=== PATIENT | female | born 1995 | race Caucasian/White ===

== ENCOUNTER 2017-09-30 17:25 | Emergency (ER) | payer BC ==
[~2017-09-30] VITALS: Ht 175.3 cm; Wt 60.5 kg
[2017-09-30 17:39] VITALS: Ht 175.3 cm; Wt 60.5 kg
[2017-09-30 18:14] LABS: BASO % 0.3 %; BASO ABS # 0.03 K/uL (0-0.2); EOS ABS # 0.11 K/uL (0-0.5); HEMATOCRIT 39.9 % (37-47); HEMOGLOBIN 13.6 g/dL (12.0-16.0); IG# 0.02 K/uL (0.00-0.02); LYMPH % 14.3 %; LYMPH ABS # 1.58 K/uL (1.2-3.4); MEAN CELL VOLUME 90.3 fL (80-100); MEAN CORPUSCULAR HEMOGLOBIN 30.8 pg (25-34); MEAN CORPUSCULAR HGB CONC 34.1 g/dl (32-36); MEAN PLATELET VOLUME 9.4 fL (7.4-10.4); MONO % 8.7 %; MONO ABS # 0.96 K/uL (0.11-0.59); NEUT % 75.5 %; NEUT ABS # 8.36 K/uL (1.4-6.5); PLATELET COUNT 215 K/uL (130-400); RED CELL DISTRIBUTION WIDTH CV 12.9 % (11.5-14.5); RED CELL DISTRIBUTION WIDTH SD 42.4 fL (36.4-46.3); WHITE BLOOD COUNT 11.06 K/uL (4.8-10.8)
[2017-09-30 18:22] LABS: ALBUMIN 4.1 gm/dl (3.4-5.0); ALT/SGPT 15 U/L (12-78); AST/SGOT 17 U/L (15-37); BLOOD UREA NITROGEN 15 mg/dl (7-18); CALCIUM 8.9 mg/dl (8.5-10.1); CARBON DIOXIDE 30 mmol/L (21-32); CREATININE 0.93 mg/dl (0.60-1.20); GLUCOSE 74 mg/dl (70-99); LIPASE 111 U/L (73-393); POTASSIUM 3.9 mmol/L (3.5-5.1); SODIUM 139 mmol/L (136-145)
[2017-09-30 18:25] LABS: ALKALINE PHOSPHATASE 75 U/L (45-117); TOTAL PROTEIN 7.5 gm/dl (6.4-8.2)
[2017-09-30] MEDS ORDERED: DOXY75CA4 PO (18:57)
--- NOTE | 2017-09-30 20:12 | DIAGNOSTIC IMAGING REPORT ---
PELVIC COMPLETE NON OB CLINICAL HISTORY: 22 years-old Female presenting with eval for cyst/torsion, , last menstrual period 09/05/2017, no abnormal bleeding or history of surgery, on contraceptive, negative test, pelvic pain. TECHNIQUE: Real-time grayscale and color and spectral Doppler ultrasound imaging of the pelvis was performed using a transabdominal probe. COMPARISON: None. FINDINGS: Uterus: Normal. Anteverted. The uterus measures 7.1 x 3.1 x 4.1 cm. Endometrial stripe measures 10 mm in thickness. Endometrium normal-appearing. Cervix normal. Right adnexa: Right ovary not visualized. Left adnexa: Left ovary normal. Left ovary measures 5.2 x 2.2 x 2.3 cm (calculated volume 13.7 mL). Normal color Doppler flow and arterial and venous waveforms within the ovarian parenchyma. Other: No free fluid. IMPRESSION: Nonvisualization of the right ovary. No convincing evidence of left ovarian torsion. Examination limited by transabdominal technique. Normal uterus for age. Electronically signed by: Breezy Huff M.D. 09/30/2017 8:11 PM Dictated Date/Time: 09/30/2017 8:08 PM
--- NOTE | 2017-09-30 20:12 | DIAGNOSTIC IMAGING REPORT ---
ABDOMEN LIMITED (US) CLINICAL HISTORY: 22 years-old Female presenting with eval for appendicitis. TECHNIQUE: Real-time grayscale and limited color Doppler ultrasound imaging of the right lower quadrant was performed to evaluate the appendix. COMPARISON: None. FINDINGS: Appendix not visualized. No free fluid or hyperechogenic fat to suggest secondary signs of inflammation. IMPRESSION: Appendix not visualized, although no secondary signs of inflammation. This does not exclude the diagnosis of appendicitis. Electronically signed by: Breezy Huff M.D. 09/30/2017 8:11 PM Dictated Date/Time: 09/30/2017 8:11 PM
[2017-09-30 21:00] VITALS: TEMP 37
[2017-09-30 21:25] VITALS: BP 110/71; PULSE 65; O2SAT 100
--- NOTE | 2017-09-30 23:37 | EMERGENCY ROOM VISIT NOTE ---
History Report prepared by Chen: Noemi Foster Under the Supervision of: Dr. Woody Kelley M.D. First contact with patient: 17:43 Chief Complaint: ABDOMINAL PAIN Stated Complaint: ABD PAIN History of Present Illness The patient is a 22 year old female who presents to the Emergency Room with complaints of mild left sided abdominal pain beginning at 1530 today. She states when the pain began, it was "very, very painful" and it was the in the middle of her abdomen and then traveled to the left. She notes her pain has improved and describes it as "cramping." She states she has never had anything like this before and denies any fevers, diarrhea, nausea, vomiting, or urinary symptoms. She also states she has never been sexually active and has never had any ovary problems in the past. Her LNMP was September 06 but she notes it is irregular. She denies any abnormal vaginal bleeding or discharge. She was recommended to come into ED today as per [facility] who thought it was appendicitis but did not do any testing on her and only palpated her abdomen. She states that she was tender in the right lower quadrant at [facility]. Source of History: patient Onset: 1529 today Position: abdomen (left sided) Symptom Intensity: mild Quality: cramping Timing: waxes/wanes Associated Symptoms: No fevers, No nausea, No vomiting, No diarrhea, No urinary symptoms Note: Negative sexual activity ever or any ovary problems. Review of Systems See HPI for pertinent positives & negatives. A total of 10 systems reviewed and were otherwise negative. Past Medical & Surgical Medical Problems: (1) No significant past medical history Family History No pertinent family history Social History Smoking Status: Never Smoker Smokeless Tobacco Use: Unknown Marital Status: single Occupation Status: student Current/Historical Medications Scheduled Doxycycline (Monohydrate) (Doxycycline), 1 CAP PO BID Physical Exam Vital Signs Date Time Temp Pulse Resp B/P (MAP) Pulse Ox O2 Delivery O2 Flow Rate FiO2 09/30/17 21:25 65 18 110/71 100 Room Air 09/30/17 21:00 37.0 66 20 121/76 100 09/30/17 17:39 37.0 66 20 121/76 100 Room Air Physical Exam Constitutional: Vital signs reviewed. Eyes: Pupils are equal round reactive to light. Conjunctiva are noninjected. ENT: Pharynx is clear without erythema or exudate. Mucous membranes are moist. Neck supple without meningeal signs. Respiratory: Clear to auscultation bilaterally. Breath sounds are equal bilaterally. Cardiovascular: Regular rate and rhythm. No rubs or gallops. GI: Soft and nondistended. Bowel sounds are present. Minimal tenderness in the RLQ. No guarding. Musculoskeletal: No peripheral edema. No CVA tenderness. Integumentary: No cyanosis. Neurological: The patient is awake and alert. No focal deficits. Psychiatric: Normal affect. Medical Decision & Procedures ER Provider Diagnostic Interpretation: Radiology results as stated below per my review and the radiologist's interpretation: PELVIC COMPLETE NON OB CLINICAL HISTORY: 22 years-old Female presenting with eval for cyst/torsion, , last menstrual period 09/05/2017, no abnormal bleeding or history of surgery, on contraceptive, negative test, pelvic pain. TECHNIQUE: Real-time grayscale and color and spectral Doppler ultrasound imaging of the pelvis was performed using a transabdominal probe. COMPARISON: None. FINDINGS: Uterus: Normal. Anteverted. The uterus measures 7.1 x 3.1 x 4.1 cm. Endometrial stripe measures 10 mm in thickness. Endometrium normal-appearing. Cervix normal. Right adnexa: Right ovary not visualized. Left adnexa: Left ovary normal. Left ovary measures 5.2 x 2.2 x 2.3 cm (calculated volume 13.7 mL). Normal color Doppler flow and arterial and venous waveforms within the ovarian parenchyma. Other: No free fluid. IMPRESSION: Nonvisualization of the right ovary. No convincing evidence of left ovarian torsion. Examination limited by transabdominal technique. Normal uterus for age. Electronically signed by: Breezy Huff M.D. 09/30/2017 8:11 PM ABDOMEN LIMITED (US) CLINICAL HISTORY: 22 years-old Female presenting with eval for appendicitis. TECHNIQUE: Real-time grayscale and limited color Doppler ultrasound imaging of the right lower quadrant was performed to evaluate the appendix. COMPARISON: None. FINDINGS: Appendix not visualized. No free fluid or hyperechogenic fat to suggest secondary signs of inflammation. IMPRESSION: Appendix not visualized, although no secondary signs of inflammation. This does not exclude the diagnosis of appendicitis. Electronically signed by: Breezy Huff M.D. 09/30/2017 8:11 PM Laboratory Results 09/30/17 17:55 Red Blood Count 4.42, Mean Corpuscular Volume 90.3, Mean Corpuscular Hemoglobin 30.8, Mean Corpuscular Hemoglobin Concent 34.1, Mean Platelet Volume 9.4, Neutrophils (%) (Auto) 75.5, Lymphocytes (%) (Auto) 14.3, Monocytes (%) (Auto) 8.7, Eosinophils (%) (Auto) 1.0, Basophils (%) (Auto) 0.3, Neutrophils # (Auto) 8.36, Lymphocytes # (Auto) 1.58, Monocytes # (Auto) 0.96, Eosinophils # (Auto) 0.11, Basophils # (Auto) 0.03 09/30/17 17:55 Test 09/30/17 17:52 09/30/17 17:55 Urine Color YELLOW Urine Appearance TURBID (CLEAR) Urine pH 8.0 (4.5-7.5) Urine Specific [place] 1.023 (1.000-1.030) Urine Protein NEG (NEG) Urine Glucose (UA) TRACE (NEG) Urine Ketones NEG (NEG) Urine Occult Blood NEG (NEG) Urine Nitrite NEG (NEG) Urine Bilirubin NEG (NEG) Urine Urobilinogen NEG (NEG) Urine Leukocyte Esterase NEG (NEG) Urine WBC (Auto) 1-5 /hpf (0-5) Urine RBC (Auto) 0-4 /hpf (0-4) Urine Hyaline Casts (Auto) 1-5 /lpf (0-5) Urine Epithelial Cells (Auto) >30 /lpf (0-5) Urine Bacteria (Auto) NEG (NEG) Urine Test NEG (NEG) White Blood Count 11.06 K/uL (4.8-10.8) Red Blood Count 4.42 M/uL (4.2-5.4) Hemoglobin 13.6 g/dL (12.0-16.0) Hematocrit 39.9 % (37-47) Mean Corpuscular Volume 90.3 fL (80-100) Mean Corpuscular Hemoglobin 30.8 pg (25-34) Mean Corpuscular Hemoglobin Concent 34.1 g/dl (32-36) Platelet Count 215 K/uL (130-400) Mean Platelet Volume 9.4 fL (7.4-10.4) Neutrophils (%) (Auto) 75.5 % Lymphocytes (%) (Auto) 14.3 % Monocytes (%) (Auto) 8.7 % Eosinophils (%) (Auto) 1.0 % Basophils (%) (Auto) 0.3 % Neutrophils # (Auto) 8.36 K/uL (1.4-6.5) Lymphocytes # (Auto) 1.58 K/uL (1.2-3.4) Monocytes # (Auto) 0.96 K/uL (0.11-0.59) Eosinophils # (Auto) 0.11 K/uL (0-0.5) Basophils # (Auto) 0.03 K/uL (0-0.2) RDW Standard Deviation 42.4 fL (36.4-46.3) RDW Coefficient of Variation 12.9 % (11.5-14.5) Immature Granulocyte % (Auto) 0.2 % Immature Granulocyte # (Auto) 0.02 K/uL (0.00-0.02) Anion Gap 4.0 mmol/L (3-11) Est Creatinine Clear Calc Drug Dose 92.2 ml/min Estimated GFR () 102.5 Estimated GFR (Non- 88.5 BUN/Creatinine Ratio 16.2 (10-20) Calcium Level 8.9 mg/dl (8.5-10.1) Total Bilirubin 0.3 mg/dl (0.2-1) Direct Bilirubin < 0.1 mg/dl (0-0.2) Aspartate Amino Transf (AST/SGOT) 17 U/L (15-37) Alanine Aminotransferase (ALT/SGPT) 15 U/L (12-78) Alkaline Phosphatase 75 U/L (45-117) Total Protein 7.5 gm/dl (6.4-8.2) Albumin 4.1 gm/dl (3.4-5.0) Lipase 111 U/L (73-393) Laboratory results as reviewed by me. ED Course 1644: The patient was evaluated in room B2. A complete history and physical exam was performed. 2019: Upon reevaluation, the patient feels much better and has no tenderness on exam. I reviewed her tests results and return instructions with her. I advised her to follow up in 24 hours. She was discharged home. Medical Decision This is a 22-year-old female who presents with lower abdominal pain. Differential diagnosis includes ovarian cyst, ovarian torsion, ectopic , kidney stone, UTI, appendicitis. I did perform a limited focused review of portions of the patient's old chart on the electronic medical record. The patient has had no prior visits to this hospital. I did evaluate the patient as noted above. The patient is presenting with lower abdominal pain. She stated it was severe earlier but now it has improved significantly. She was at [facility] and told that she may have appendicitis and sent here. She did state that her pain started in her suprapubic region but now it is in her left lower pelvis. On exam she has some very minimal tenderness in the right lower quadrant but otherwise no pain. IV access was established. I did order and personally review the patient's urinalysis as described above. Urine test is negative. I did order and review the patient's blood work as noted in the electronic medical record. Her white blood cell count is slightly elevated. I did order an ultrasound of the right lower quadrant and pelvis s. I did review the images myself as well as the radiology report as described above. The appendix was not visualized. The pelvic exam was somewhat limited due to transabdominal technique only. The patient has never been sexually active and so a transvaginal was not ordered. I did reassess the patient. I did discuss the test results with her. She states that her pain is significantly improved and on reexamination she has no tenderness to palpation. At this time I explained her that the cause of her pain is unclear and so I did recommend she follow-up with [facility] in 24 hours for reexamination. I did tell her to return immediately for worsening pain or should she develop fever or vomiting. At this time I did not feel CT scanning was indicated and she agreed. The patient was discharged in good condition. Medication Reconcilliation Current Medication List: was personally reviewed by me Blood Pressure Screening Patient's blood pressure: Normal blood pressure Blood pressure disposition: Did not require urgent referral Impression Primary Impression: Lower abdominal pain Scribe Attestation The scribe's documentation has been prepared under my direct and personally reviewed by me in its entirety. I confirm that the note above accurately reflects all work, treatment, procedures, and medical decision making performed by me. Departure Information Dispostion Home / Self-Care Forms HOME CARE DOCUMENTATION FORM, IMPORTANT VISIT INFORMATION Patient Instructions My [facility] Additional Instructions You have been examined and treated today on an emergency basis only. This is not a substitute for, or an effort to provide, complete comprehensive medical care. It is impossible to recognize and treat all injuries or illnesses in a single emergency department visit. It is therefore important that you follow up closely with your physician within 24 hours. Call as soon as possible for an appointment. Return for worsening symptoms or if you develop fever, vomiting, pain in the right lower quadrant or any other concerning symptoms.
== END 2017-09-30 21:00 | disposition home or self-care (01) ==
LOC: C.EDB 17:26
DX: R10.31 Right lower quadrant pain (principal); D72.829 Elevated white blood cell count, unspecified